=== PATIENT | female | born 2000 | race Hispanic/Latino ===

== ENCOUNTER 2021-11-10 12:09 | Emergency (ER) | payer OTHER, SELFPAY ==
--- NOTE | ~2021-11-10 | XR_ITS ---
EXAMINATION: XR abdomen/kub 1V DATE: 11/10/2021 14:27 INDICATION: 2 days of constipation TECHNIQUE: A supine view of the abdomen was obtained. COMPARISON: None. FINDINGS: Moderate amount of stool in the transverse colon. Small amount of gas with minimal if any stool ident ified in the remainder of the colon. No dilated gas-filled loops of bowel to suggest obstruction. Mil d lumbar levocurvature. IMPRESSION: 1. Normal bowel gas pattern with moderate amount of stool at the transverse colon. Reviewed, dictated and finalized at location B. DIAL TEACHER IMPRESSION: 1. Normal bowel gas pattern with moderate amount of stool at the transverse col on.
[2021-11-10 12:21] VITALS: BP 109/70; PULSE 97; RESP 16; TEMP 37.6; O2SAT 99
--- NOTE | 2021-11-10 14:07 | ED.GENADULT ---
HPI - General Adult General Chief complaint: Abdominal Pain Stated complaint: ABD PAIN Time Seen by Provider: 11/10/21 14:07 Source: patient, RN notes reviewed and old records reviewed Mode of arrival: ambulatory Limitations: no limitations History of Present Illness HPI narrative: 20-year-old female who presents to [facility] with complaints of abdominal pain at the navel region radiating upward to the sternum. Patient has had constipation with small stool this morning which was very hard. Patient reports that she took laxative yesterday. Patient states that her appetite is decreased and her pain seems worse with eating.Patient denies any acute nausea or vomiting. MD complaint: andominal pain and constipation Related Data Allergies Allergy/AdvReac Type Severity Reaction Status Date / Time No Known Allergies Allergy Unverified 07/24/19 09:16 Review of Systems Review of Systems: CONSTITUTIONAL: Denies fever, chills, or sweats. EYES: Denies visual changes, redness, or discharge. ENT: Denies rhinorrhea, congestion, sore throat, or otalgia. CARDIOVASCULAR: Denies chest pain, palpitations, or edema. RESPIRATORY: Denies cough or dyspnea. GASTROINTESTINAL: positive for abdominal pain from naval region to her chest with no nausea, vomiting, or diarrhea, has had constipation GENITOURINARY: Denies dysuria or hematuria. SKIN: Denies rash or itching. MUSCULOSKELETAL: Denies back pain, joint pain, or myalgia. NEUROLOGIC: Denies headache, numbness, or weakness. PSYCHIATRIC: Denies anxiety or depression. All systems reviewed & are unremarkable except as noted in HPI and below PMFSH Past Medical History Medical History (Updated 11/12/21 @ 00:10 by Milly Santana NP) Ear infection Enteritis was hospitalized 2019 with this diagnosis Social History Social History (Updated 11/12/21 @ 00:11 by Milly Santana NP) Smoking status: Never smoker Alcohol intake: unknown Substance use: never Living arrangements: with family Gender identity (if verbalized by the patient): Female Comments At time of signature, agree with nursing past medical, surgical, social and family history. There is no relevant family history pertinent to the presenting complaint Exam Narrative: GENERAL: Well-appearing, well-nourished, and in no acute distress. HEAD: Normocephalic, atraumatic. EYES: PERRLA and EOMI. ENT: Nares clear, no rhinorrhea or epistaxis. Mucous membranes moist.TM's normal with good light reflex, throat pink with no exudates or lesions, no tonsil abnormality NECK: Supple.no lymphadenopathy CHEST: Clear to auscultation. No respiratory distress. HEART: Regular rate and rhythm. No murmur heard. Normal peripheral pulses. ABDOMEN: Soft, tender upper epigastric area on palpation with abdomen nondistended, normal active bowel sounds.reported constipation, No McBurney point tenderness. EXTREMITIES: Normal range of motion. No edema. SKIN: Warm, dry, no rash. NEURO: No focal deficits. Alert and oriented x3. Course Course Level of Care: Express Care Visit Vital Signs Vital signs: Vital Signs Temperature 37.6 C 11/10/21 12:21 Pulse Rate 97 11/10/21 12:21 Respiratory Rate 16 11/10/21 12:21 Blood Pressure 109/70 11/10/21 12:21 Pulse Oximetry 99 11/10/21 12:21 Temperature 37.6 C 11/10/21 12:21 Pulse Rate 97 11/10/21 12:21 Respiratory Rate 16 11/10/21 12:21 Blood Pressure 109/70 11/10/21 12:21 Pulse Oximetry 99 11/10/21 12:21 Medical Decision Making Differential Diagnosis Differential Diagnosis: abdominal pain,constipation, gastritis, enteritis. Medical Records Medical records reviewed: Yes I reviewed the external patient's medical records. Vital Signs Vital Signs: Vital Signs Temperature 37.6 C 11/10/21 12:21 Pulse Rate 97 11/10/21 12:21 Respiratory Rate 16 11/10/21 12:21 Blood Pressure 109/70 11/10/21 12:21 Pulse Oximetry 99 11/10/21 12:21 Temperature 37.6 C 11/10
== END 2021-11-10 15:01 | disposition home or self-care (01) ==
PROVIDERS: Emergency Provider Registered Nurse
DX: R10.13 Epigastric pain (principal); K59.00 Constipation, unspecified
CPT/HCPCS: 74018; 99213; G0463

== ENCOUNTER 2022-01-30 17:10 | Emergency (ER) | payer OTHER, SELFPAY ==
--- NOTE | ~2022-01-30 | CT_ITS ---
EXAMINATION: CT abdomen pelvis w con DATE: 01/30/2022 20:13 INDICATION: Right lower quadrant abdominal pain and tenderness today TECHNIQUE: Computed tomography (CT) of the abdomen and pelvis was performed with 100 CC Omnipaque 350 intravenous contrast. Automated exposure control and iterative reconstruction technique were employe d. Exam dose: 252.00 mGy-cm total exam DLP. COMPARISON: 11/10/2019 KUB 07/24/2019 CT abdomen pelvis FINDINGS: The lung bases are clear. Normal heart size. No pericardial or pleural effusion. The liver, gallbladder, bile ducts, spleen, pancreas and pancreatic duct appear normal. Normal morphology of the adrenal glands. No renal mass lesion or urinary tract calculus or hydroureteronephrosis. The uterus, adnexal areas and urinary bladder are unremarkable. Normal caliber of the abdominal aorta. No intraperitoneal or retroperitoneal or pelvic mass lesion or adenopathy or ascites. Normal appendix. No bowel obstruction or intraperitoneal free air. Included skeletal structures are unremarkable. IMPRESSION: Normal appendix Reviewed, dictated and finalized at Location A. Reviewed, dictated and finalized at location A. IMPRESSION: Normal appendix
[2022-01-30 17:35] VITALS: BP 124/73; PULSE 111; RESP 14; TEMP 36.9; O2SAT 100
[2022-01-30 18:39] LABS: Basophils Absolute Auto 0.1 K/mm3 (0.0-0.1); Basophils Percent Auto 0.5 % (0.2-1.2); Eosinophils Absolute Auto 0.1 K/mm3 (0-0.3); Hematocrit 43.1 % (37.0-47.0); Immature Granulocyte Absolute 0.04 K/mm3 (0.00-0.031); Immature Granulocyte Percent A 0.4 % (0-0.5); Lymphocytes Absolute Auto 2.43 K/mm3 (0.9-3.2); Lymphocytes Percent Auto 25.8 % (18.3-44.2); Mean Corpuscular HGB Conc 32.5 g/dl (32-36); Mean Corpuscular Hemoglobin 30.3 pg (26-34); Mean Corpuscular Volume 93.3 fl (80-100); Mean Platelet Volume 9.7 fl (7.4-10.4); Monocytes Absolute Auto 0.9 K/mm3 (0.1-0.6); Monocytes Percent Auto 9.8 % (2.6-8.5); Neutrophils Absolute Auto 5.9 K/mm3 (1.3-6.7); Neutrophils Percent Auto 62.5 % (45.5-73.1); Platelet Count Result 300 k/mm3 (150-375); Red Blood Count 4.62 M/mm3 (4.2-5.4); Red Cell Distribution Width 12.4 % (11.5-14.5); White Blood Count 9.4 K/mm3 (4.5-10.0)
[2022-01-30 18:56] LABS: Alanine Aminotransferase 43 U/L (4-35); Albumin Level 4.6 g/dL (3.5-5.1); Alkaline Phosphatase 70 U/L (38-126); Anion Gap 8 mmol/L (8-16); Aspartate Amino Transferase 44 U/L (14-36); Bilirubin,Total 0.2 mg/dL (0.2-1.3); Blood Urea Nitrogen 9 mg/dL (7-17); Calcium 9.1 mg/dL (8.4-10.2); Carbon Dioxide 23 mmol/L (22-30); Chloride 105 mmol/L (98-107); Estimated Glomerular Filt Rate > 60; Glucose 109 mg/dL (65-110); Lipase 67 U/L (23-300); Potassium 3.9 mmol/L (3.4-5.0); Sodium 136 mmol/L (137-145)
[2022-01-30 19:25] LABS: Add Urine Microscopic? YES; Appearance Urine Cloudy (Clear); Bacteria Urine Trace /hpf; Bilirubin Urine Negative (Negative); Blood Urine Negative (Negative); Color Urine Yellow (Yellow); Glucose Urine UA Negative (Negative); Ketones Urine Negative (Negative); Leukocyte Esterase Ur Negative LEU/UL (Negative); Mucus Urine Rare /lpf; Nitrate Urine Negative (Negative); Protein Urine Negative (Negative); Specific Grav Ur 1.025 (1.001-1.035); Squamous Epithelial Cell Urine Moderate /hpf (Few); Urobilinogen Urine Negative mg/dL (<2.0)
--- NOTE | 2022-01-30 19:29 | ED.ABDPAIN ---
HPI - Abdominal Pain General Chief Complaint: Abdominal Pain Stated Complaint: abd pain Time Seen by Provider: 01/30/22 19:28 Source: patient Mode of arrival: ambulatory Limitations: no limitations History of Present Illness HPI narrative: Patient is a 21-year-old female complaining of right lower quadrant pain, sharp, 5 out of 10, nonradiating started today. Patient denies any nausea, vomiting, diarrhea, urinary symptoms, fever or chills. Patient denies any vaginal bleeding or discharge. Last menstrual period January 16. Related Data Home Medications Medication Instructions Recorded Confirmed No Home Medications 01/30/22 01/30/22 Allergies Allergy/AdvReac Type Severity Reaction Status Date / Time No Known Allergies Allergy Unverified 07/24/19 09:16 Review of Systems Review of Systems: All systems reviewed & are unremarkable except as noted in HPI and below Constitutional: Constitutional: Denies body ache(s), Denies chills, Denies excessive sweating, Denies fatigue, Denies fever(s), Denies headache(s), Denies lethargy, Denies malaise, Denies weakness and Denies weight loss Eyes: Eyes: Denies blurry vision, Denies change in vision and Denies loss of vision ENT: Denies dizziness, Denies ear discharge, Denies headache(s), Denies lip swelling, Denies epistaxis, Denies nasal congestion, Denies neck pain, Denies throat swelling and Denies tongue swelling Cardiovascular: Cardiovascular: Denies chest pain, Denies chest pain at rest, Denies chest pain with activity, Denies diaphoresis, Denies rapid heart rate, Denies edema, Denies irregular heart rhythm, Denies lightheadedness, Denies palpitations, Denies dyspnea and Denies dyspnea on exertion Respiratory: Respiratory: Denies chest congestion, Denies cough, Denies hemoptysis, Denies dyspnea and Denies dyspnea on exertion Gastrointestinal: Gastrointestinal: Denies melena, Denies hematochezia, Denies diarrhea, Denies nausea, Denies vomiting and Denies hematemesis Musculoskeletal: Musculoskeletal: Denies abnormal gait, Denies deformity, Denies joint swelling, Denies limited range of motion, Denies neck pain and Denies numbness Neurologic: Denies Abnormal speech present, Denies abnormal gait, Denies confusion, Denies dizziness, Denies headache(s), Denies focal weakness, Denies loss of vision, Denies numbness, Denies Other visual disturbances, Denies Sensory deficit (Neuro) and Denies weakness Psychiatric: Psychiatric: Denies confusion, Denies depression, Denies auditory hallucinations, Denies homicidal ideation and Denies suicidal ideation Endocrine: Endocrine: Denies cold intolerance, Denies excessive sweating, Denies fatigue, Denies heat intolerance and Denies palpitations Hematologic/Lymphatic: Hematologic/Lymphatic: Denies easy bleeding and Denies easy bruising Allergic/Immunologic: Allergic/Immunologic: Denies lip swelling, Denies throat swelling and Denies tongue swelling PMFSH Past Medical History Medical History Ear infection Enteritis was hospitalized 2019 with this diagnosis Social History Social History Smoking status: Never smoker Alcohol intake: unknown Substance use: never Gender identity (if verbalized by the patient): Female Exam Const: General: cooperative, healthy appearing, comfortable, no acute distress, well developed, alert and awake; No confusion Orientation/consciousness: oriented to person, oriented to place, oriented to time, patient oriented x3 and No confusion Limitations: no limitations HENMT: Head: normal to inspection, normocephalic and atraumatic Ears: hearing grossly normal bilaterally, TM normal on the right and TM normal on the left General nose exam: Normal external nose present, Normal nares present and No nasal discharge present Face and sinus: normal facial exam Mouth: Yes Normal oral and palatal mucosa present,
[2022-01-30] MEDS: SODIUM CHLORIDE 0.9% IV 1,000 ML 999 ML IV CONT (19:43)
[2022-01-30 21:30] VITALS: BP 104/69; PULSE 90; RESP 16; O2SAT 100
== END 2022-01-30 21:30 | disposition home or self-care (01) ==
PROVIDERS: Emergency Provider Emergency Medicine
DX: R10.31 Right lower quadrant pain (principal)
CPT/HCPCS: 36415; 74177; 80053; 81001; 81025; 83690; 85025; 96360; 99284; J7030; Q9967

== ENCOUNTER 2023-03-16 09:14 | Outpatient (CLI) | payer OTHER, SELFPAY ==
--- NOTE | ~2023-03-16 | US_ITS ---
Limited Abdominal Sonogram: Real-time sonographic imaging of the right upper quadrant was performed. Clinical History: Abnormal liver enzymes Findings: The liver appears normal with no evidence of mass lesion or bile duct dilatation. Main por naina vein demonstrates normal direction of flow. The gallbladder is well distended, and appears normal with no evidence of gallstone or wall thickening. The common bile duct measures 3 mm. The visualize d pancreas, aorta, and IVC are unremarkable. Right kidney measures 9 cm in length, without evidence f or hydronephrosis. Impression: No significant abnormality seen. Reviewed, dictated and finalized at location . Impression: No significant abnormality seen.
== END 2023-03-16 09:15 ==
PROVIDERS: PCP Nurse Practitioner Family; Visit Provider Nurse Practitioner Family
DX: K90.49 Malabsorption due to intolerance, not elsewhere classified (principal); R74.01 Elevation of levels of liver transaminase levels
CPT/HCPCS: 76705

== ENCOUNTER 2023-04-11 03:11 | Emergency (ER) | payer OTHER, SELFPAY ==
[2023-04-11 03:14] VITALS: BP 127/83; PULSE 91; RESP 18; TEMP 36.5; O2SAT 100
[2023-04-11 03:25] VITALS: BP 118/80; PULSE 86; RESP 14; TEMP 36.9; O2SAT 99
--- NOTE | 2023-04-11 03:53 | ED.GENADULT ---
HPI - General Adult General Chief complaint: Ear Stated complaint: right side earache History of Present Illness HPI narrative: this is a 22-year-old female presenting with chief complaint of right ear pain. Started about 6 hours ago. It was preceded by a sore throat and a cough. Patient denies fever chills nausea vomiting or diarrhea. She has no hearing loss. No dizziness or vertigo. She states this feels like when she had acute otitis media as a child. Related Data Home Medications Medication Instructions Recorded Confirmed norelgestromin 150 mcg-e.estradiol 1 patch transdermal WEEKLY 03/07/23 03/07/23 35 mcg/24 hr weekly transderm patch (Xulane) Allergies Allergy/AdvReac Type Severity Reaction Status Date / Time No Known Allergies Allergy Verified 04/11/23 03:24 [facility] Past Medical History Medical History Ear infection Enteritis was hospitalized 2019 with this diagnosis Family History Family History Mother Diabetes mellitus Father Diabetes mellitus Liver cancer Social History Social History Smoking status: Never smoker Alcohol intake: unknown Substance use: never Living arrangements: with family Gender identity (if verbalized by the patient): Female Exam Narrative: APPEARANCE: No apparent distress. Head: tympanic membrane on the right side is erythematous and bulging. Patient has erythematous /Edematous tonsils worse on left than the right. EYES: EOMI, NOSE: Atraumatic NECK: Trachea midline RESPIRATORY: No increased rate of breathing Clear to auscultation CARDIOVASCULAR: RRR, ABDOMINAL: Non-distended MUSCULOSKELETAl: No obvious deformities NEURO: Alert. Moving 4/4 extremities SKIN:: Warm, dry. Normal color PSYCHIATRIC: Normal affect Course Vital Signs Vital signs: Vital Signs Temperature 97.7 F 04/11/23 03:14 Pulse Rate 91 04/11/23 03:14 Respiratory Rate 18 04/11/23 03:14 Blood Pressure 127/83 04/11/23 03:14 Pulse Oximetry 100 04/11/23 03:14 Oxygen Delivery Room Air 04/11/23 03:14 Temperature 98.5 F 04/11/23 03:25 Pulse Rate 86 04/11/23 03:25 Respiratory Rate 14 04/11/23 03:25 Blood Pressure 118/80 04/11/23 03:25 Pulse Oximetry 99 04/11/23 03:25 Oxygen Delivery Room Air 04/11/23 03:14 Medical Decision Making MDM Narrative Medical decision making narrative: -Presentation: 22-year-old female presenting with ear pain sore throat cough. 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 Additionally she has erythematous throat. Dx tests considered but not ordered: -Procedures: -Interventions: Motrin, Tylenol, dexamethasone, Augmentin -Shared decision making / Disposition: patient has acute otitis media on the right as well as a erythematous posterior oropharynx. Ten day course of Augmentin will cover both otitis media as well as strep throat. Patient will be discharged. -RX Augmentin 875 mg b.i.d. times 10 days Vital Signs Vital Signs: Vital Signs Temperature 97.7 F 04/11/23 03:14 Pulse Rate 91 04/11/23 03:14 Respiratory Rate 18 04/11/23 03:14 Blood Pressure 127/83 04/11/23 03:14 Pulse Oximetry 100 04/11/23 03:14 Oxygen Delivery Room Air 04/11/23 03:14 Temperature 98.5 F 04/11/23 03:25 Pulse Rate 86 04/11/23 03:25 Respiratory Rate 14 04/11/23 03:25 Bl
[2023-04-11] MEDS: ACETAMINOPHEN 500 MG TABLET 1000 MG PO (04:16)
[2023-04-11] MEDS: AMOXICILLIN/CLAVULANATE K 875-125 MG TAB 1 TABLET PO (04:17)
[2023-04-11] MEDS: IBUPROFEN 400 MG TABLET 800 MG PO (04:17)
== END 2023-04-11 04:30 | disposition home or self-care (01) ==
PROVIDERS: Emergency Provider Emergency Medicine; PCP Nurse Practitioner Family
DX: J06.9 Acute upper respiratory infection, unspecified (principal); H66.91 Otitis media, unspecified, right ear
CPT/HCPCS: 96372; 99283; A9270; J1100

== ENCOUNTER 2023-06-11 21:33 | Emergency (ER) | payer OTHER, SELFPAY ==
--- NOTE | ~2023-06-11 | CT_ITS ---
CT scan of the right femur CLINICAL HISTORY: Right groin swelling TECHNIQUE: Following intravenous administration of 100 cc of Omnipaque 350 contrast 0, axial imaging of the right femur was performed. Sagittal and coronal reformatted images were constructed. Dose redu ction technique was used on this scan by utilizing automated exposure control and iterative reconstru ction technique. The dose-length product (DLP) was 478.82 mGy-cm. Findings: No fracture or dislocation seen. No periosteal reaction seen. Joint spaces at the hip and k nee are intact. Visualized musculature unremarkable. Subcutaneous soft tissues are unremarkable. No mass lesion or fl uid collection seen. IMPRESSION: No significant abnormality seen. Reviewed, dictated and finalized at location M.
[2023-06-11 21:38] VITALS: BP 134/80; PULSE 109; RESP 18; TEMP 36.8; O2SAT 100
[2023-06-11 22:55] LABS: Basophils Absolute Auto 0.1 K/mm3 (0.0-0.1); Basophils Percent Auto 0.4 % (0.2-1.2); Eosinophils Absolute Auto 0.2 K/mm3 (0-0.3); Eosinophils Percent Auto 1.5 % (0-4.4); Hematocrit 40.9 % (37.0-47.0); Hemoglobin 13.4 g/dL (12.0-15.0); Immature Granulocyte Absolute 0.04 K/mm3 (0.00-0.031); Immature Granulocyte Percent A 0.3 % (0-0.5); Lymphocytes Absolute Auto 3.73 K/mm3 (0.9-3.2); Lymphocytes Percent Auto 30.3 % (18.3-44.2); Mean Corpuscular HGB Conc 32.8 g/dl (32-36); Mean Corpuscular Hemoglobin 29.9 pg (26-34); Mean Corpuscular Volume 91.3 fl (80-100); Mean Platelet Volume 9.6 fl (7.4-10.4); Monocytes Absolute Auto 0.9 K/mm3 (0.1-0.6); Monocytes Percent Auto 6.9 % (2.6-8.5); Neutrophils Absolute Auto 7.5 K/mm3 (1.3-6.7); Neutrophils Percent Auto 60.6 % (45.5-73.1); Platelet Count Result 347 k/mm3 (150-375); Red Blood Count 4.48 M/mm3 (4.2-5.4); White Blood Count 12.3 K/mm3 (4.5-10.0)
[2023-06-11 23:06] LABS: Alanine Aminotransferase 44 U/L (6-35); Albumin Level 4.2 g/dL (3.5-5.1); Alkaline Phosphatase 53 U/L (38-126); Anion Gap 7 mmol/L (8-16); Aspartate Amino Transferase 40 U/L (14-36); Bilirubin,Total 0.2 mg/dL (0.2-1.3); Blood Urea Nitrogen 8 mg/dL (7-17); Calcium 9.1 mg/dL (8.4-10.2); Carbon Dioxide 24 mmol/L (22-30); Chloride 105 mmol/L (98-107); Estimated CRCL calculation 109 ml/min; Estimated Glomerular Filt Rate > 60; Glucose 105 mg/dL (65-110); Potassium 3.4 mmol/L (3.4-5.0); Sodium 136 mmol/L (137-145)
[2023-06-11 23:14] LABS: Appearance Urine Clear (Clear); Bacteria Urine None Seen /hpf; Bilirubin Urine Negative (Negative); Blood Urine Trace (Negative); Color Urine Yellow (Yellow); Glucose Urine UA Negative (Negative); Ketones Urine Negative (Negative); Leukocyte Esterase Ur Trace LEU/UL (Negative); Nitrate Urine Negative (Negative); Non Pathogenic Casts 0-2; Protein Urine Negative (Negative); RBC Urine 0-2 /hpf (0-2); Specific Grav Ur 1.015 (1.001-1.035); Squamous Epithelial Cell Urine Occasional /hpf (Few); Urobilinogen Urine 0.2 mg/dL (<2.0); WBC Urine 0-5 /hpf; pH Urine 5.5 (5.0-9.0)
[2023-06-11 23:18] LABS: Add Urine Microscopic? YES
[2023-06-12] MEDS: SODIUM CHLORIDE 0.9% IV 1,000 ML 999 ML IV CONT (00:46)
[2023-06-12] MEDS: KETOROLAC 30 MG/ML VIAL (*BKC) IV PUSH (00:46)
--- NOTE | 2023-06-12 02:17 | ED.GENADULT ---
HPI - General Adult General Chief complaint: Unspecified Stated complaint: groin pain Time Seen by Provider: 06/11/23 22:55 Source: patient and RN notes reviewed Mode of arrival: ambulatory Limitations: no limitations History of Present Illness HPI narrative: This is a 22 year old female who presents for evaluation of right medial thigh pain. She reports this pain started 3 days ago while she was sleeping. Her pain has been constant . She has associated tenderness and pain with movement. She denies any injury, nausea, vomiting or fever. Her pain is nonradiating. She took ibuprofen 200 mg yesterday without any relief. She denies abdominal pain or pelvic pain. She is currently on her menstrual cycle right now. Related Data Home Medications Medication Instructions Recorded Confirmed norelgestromin 150 mcg-e.estradiol 1 patch transdermal WEEKLY 03/07/23 03/07/23 35 mcg/24 hr weekly transderm patch (Xulane) Allergies Allergy/AdvReac Type Severity Reaction Status Date / Time No Known Allergies Allergy Verified 06/11/23 21:39 Review of Systems Constitutional: Constitutional: Denies weakness Cardiovascular: Cardiovascular: Denies syncope, Denies rapid heart rate, Denies irregular heart rhythm, Denies leg edema and Denies dyspnea Respiratory: Respiratory: Denies chest congestion, Denies hemoptysis, Denies excessive phlegm production and Denies dyspnea Gastrointestinal: Gastrointestinal: Denies abdominal pain, Denies hematochezia, Denies diarrhea and Denies vomiting Genitourinary: Genitourinary: Denies hematuria and Denies dysuria Musculoskeletal: Musculoskeletal: Denies joint swelling, Denies loss of height, Denies muscle weakness and Reports other (right groin pain) Neurologic: Denies syncope, Denies focal weakness and Denies weakness PMFSH Past Medical History Medical History Ear infection Enteritis was hospitalized 2019 with this diagnosis Family History Family History Mother Diabetes mellitus Father Diabetes mellitus Liver cancer Social History Social History Smoking status: Never smoker Alcohol intake: unknown Substance use: never Living arrangements: with family Gender identity (if verbalized by the patient): Female Exam Narrative: GENERAL:well-nourished, and in mild HEAD: Normocephalic, atraumatic EYES: EOMI, conjunctiva clear without discharge THROAT:Mucous membranes moist, Oropharynx normal without erythema, exudate, peritonsillar swelling or fluctuance NECK: Supple, without lymphadenopathy or mass RESPIRATORY: No respiratory distress, Airway patent, Respirations non-labored, Clear to auscultation without rales, rhonchi or wheeze HEART: Regular rate and rhythm. No murmur heard. Normal peripheral pulses. ABDOMEN: Soft, nontender, nondistended, normal active bowel sounds. No masses. No rebound or guarding, No organomegaly. EXTREMITIES: No edema, normal strength with full range of motion. TTP right medial thigh, no erythema, no fluctuance; strong bilateral pedal pulses, right femoral pulse present SKIN: Warm, dry, normal color without rash NEURO: Alert and oriented x3. CN 2-12 grossly intact. No focal deficits. PSYCH: Normal mood and affect. Course Reevaluation(s) Reevaluation #1: PAtient reports her pain has improved. I discussed CT did not show any acute findings. I Discussed plan to discharge home with antiinflammatories. Patient may have lymph node that is inflammed so will give keflex as welling Date: 06/12/23 Time: 04:34 Vital Signs Vital signs: Vital Signs Temperature 98.3 F 06/11/23 21:38 Pulse Rate 109 H 06/11/23 21:38 Respiratory Rate 18 06/11/23 21:38 Blood Pressure 134/80 06/11/23 21:38 Pulse Oximetry 100 06/11/23 21:38 Oxygen Delivery Room Air 06/11/23 21:38
[2023-06-12 04:38] VITALS: BP 112/80; PULSE 94; RESP 16; O2SAT 97
== END 2023-06-12 04:59 | disposition home or self-care (01) ==
PROVIDERS: Emergency Provider General Practice; PCP Nurse Practitioner Family
DX: R10.30 Lower abdominal pain, unspecified (principal)
CPT/HCPCS: 36415; 73701; 80053; 81001; 81025; 85025; 96361; 96374; 99284; J1885; J7030

== ENCOUNTER 2024-05-17 22:02 | Emergency (ER) | payer OTHER, SELFPAY ==
--- NOTE | ~2024-05-17 | XR_ITS ---
EXAMINATION: XR chest 1V portable DATE: 05/18/2024 00:13 INDICATION: Chest pain TECHNIQUE: frontal view of the chest was obtained. COMPARISON: Chest radiograph dated 07/25/2019 FINDINGS: The lungs remain clear with no focal airspace opacities, pulmonary edema, pleural effusion or pneumot horax. The cardiomediastinal silhouette is normal. Mild thoracic dextrocurvature. IMPRESSION: 1. No acute cardiopulmonary disease. Reviewed, dictated and finalized at location A.
[2024-05-17 22:04] VITALS: BP 139/92; PULSE 131; RESP 18; TEMP 36.7; O2SAT 100
--- NOTE | 2024-05-17 22:08 | ECG_ITS ---
Test Date: 2024-05-17 22:14:01 Measurements Intervals [place] Rate: 110 P: 50 MT: 129 QRS: 70 QRSD: 81 T: -13 QT: 331 QTc: 448 Interpretive Statements SINUS TACHYCARDIA NONSPECIFIC ST & T-WAVE ABNORMALITY- INF/LAT LEADS BASELINE WANDER- V4 ABNORMAL ECG No previous ECG available for comparison Electronically Signed On 05-18-2024 07:27:20 CDT by Eusebio Stone D.O.
--- NOTE | 2024-05-17 23:47 | ED.CHESTPAIN ---
HPI - Chest Pain General Chief Complaint: Chest Pain Stated Complaint: chest pain Time Seen by Provider: 05/17/24 23:28 History of Present Illness HPI narrative: 23-year-old female presents to the emergency department mother at bedside for chest pain for the past several days. Patient states the pain is in the center of her chest and occurs after eating. She describes the pain as a dull ache. She denies other aggravating or alleviating factors. Denies shortness of breath, lower extremity edema, biopsies, recent surgeries or hospitalizations, history of VTE. She is not on control. She denies cough or congestion, fever, abdominal pain, vomiting or diarrhea. She does endorse some nausea but is attributing this to her current menstrual cycle. Also notes that she has been feeling very anxious recently. She admits that she is currently anxious. Denies SI or HI. Related Data Home Medications Medication Instructions Recorded Confirmed norelgestromin 150 mcg-e.estradiol 1 patch transdermal WEEKLY 03/07/23 03/07/23 35 mcg/24 hr weekly transderm patch (Xulane) Allergies Allergy/AdvReac Type Severity Reaction Status Date / Time No Known Allergies Allergy Verified 05/17/24 22:07 Review of Systems Review of Systems: CONSTITUTIONAL: Denies fever, chills, or sweats. EYES: Denies visual changes, redness, or discharge. ENT: Denies rhinorrhea, congestion, sore throat, or otalgia. CARDIOVASCULAR: See HPI RESPIRATORY: Denies cough or dyspnea. GASTROINTESTINAL: Denies abdominal pain, nausea, vomiting, or diarrhea. GENITOURINARY: Denies dysuria or hematuria. SKIN: Denies rash or itching. MUSCULOSKELETAL: Denies back pain, joint pain, or myalgia. NEUROLOGIC: Denies headache, numbness, or weakness. PSYCHIATRIC: Denies anxiety or depression. ON LICENSE OF [facility] Past Medical History Medical History Ear infection Enteritis was hospitalized 2019 with this diagnosis Family History Family History Mother Diabetes mellitus Father Diabetes mellitus Liver cancer Social History Social History Smoking status: Never smoker Alcohol intake: unknown Substance use: never Living arrangements: with family Gender identity (if verbalized by the patient): Female Exam Narrative: GENERAL: Well-appearing, well-nourished, and in no acute distress. anxious appearing HEAD: Normocephalic, atraumatic. EYES: PERRLA and EOMI. ENT: Nares clear, no rhinorrhea or epistaxis. Mucous membranes moist. NECK: Supple. CHEST: Clear to auscultation. No respiratory distress. no tenderness to chest wall HEART: Regular rate and rhythm. No murmur heard. Normal peripheral pulses. ABDOMEN: Soft, nontender, nondistended, normal active bowel sounds. EXTREMITIES: Normal range of motion. No edema. negative Homans bilaterally SKIN: Warm, dry, no rash. NEURO: No focal deficits. Alert and oriented x3 Course Vital Signs Vital signs: Vital Signs Temperature 98.1 F 05/17/24 22:04 Pulse Rate 131 H 05/17/24 22:04 Respiratory Rate 18 05/17/24 22:04 Blood Pressure 139/92 H 05/17/24 22:04 Pulse Oximetry 100 05/17/24 22:04 Oxygen Delivery Room Air 05/17/24 22:04 Temperature 98.1 F 05/17/24 22:04 Pulse Rate 110 H 05/18/24 00:45 Respiratory Rate 15 05/18/24 00:45 Blood Pressure 109/94 H 05/18/24 00:21 Pulse Oximetry 100 05/18/24 00:21 Oxygen Delivery Room Air 05/18/24 00:08 MDM - Chest Pain MDM Narrative Medical decision making narrative: 23-year-old female presents to the emergency department for several days of midsternal chest pain that is worse after eating. Triage vital significant for blood pressure 139/92 in tachycardia 131. She does endorse feeling anxious and also appears to be anxious. She is otherwise well-appearing on
[2024-05-18 00:08] VITALS: PULSE 126; O2SAT 100
[2024-05-18 00:11] LABS: Basophils Percent Auto 0.3 % (0.2-1.2); Eosinophils Absolute Auto 0.1 K/mm3 (0-0.3); Eosinophils Percent Auto 0.5 % (0-4.4); Hematocrit 39.6 % (37.0-47.0); Hemoglobin 13.1 g/dL (12.0-15.0); Immature Granulocyte Absolute 0.03 K/mm3 (0.00-0.031); Immature Granulocyte Percent A 0.2 % (0-0.5); Lymphocytes Absolute Auto 3.31 K/mm3 (0.9-3.2); Lymphocytes Percent Auto 25.2 % (18.3-44.2); Mean Corpuscular HGB Conc 33.1 g/dl (32-36); Mean Corpuscular Hemoglobin 29.2 pg (26-34); Mean Corpuscular Volume 88.2 fl (80-100); Mean Platelet Volume 9.4 fl (7.4-10.4); Monocytes Absolute Auto 0.8 K/mm3 (0.1-0.6); Monocytes Percent Auto 5.9 % (2.6-8.5); Neutrophils Absolute Auto 8.9 K/mm3 (1.3-6.7); Neutrophils Percent Auto 67.9 % (45.5-73.1); Platelet Count Result 369 k/mm3 (150-375); Red Blood Count 4.49 M/mm3 (4.2-5.4); Red Cell Distribution Width 12.2 % (11.5-14.5); White Blood Count 13.2 K/mm3 (4.5-10.0)
[2024-05-18] MEDS: FAMOTIDINE 20 MG/2 ML VIAL IV PUSH (00:15)
[2024-05-18] MEDS: BELLADONNA ALK/PHENOB ELIX 10 ML, MAG HYDROX/ALUMINUM HYD/SIMETH 30 ML, LIDOCAINE HCL 2... PO (00:15)
[2024-05-18] MEDS: ONDANSETRON INJ 4 MG/2 ML VIAL IV PUSH (00:15)
[2024-05-18 00:21] VITALS: BP 109/94; PULSE 120; RESP 14; O2SAT 100
[2024-05-18 00:24] LABS: Alanine Aminotransferase 27 U/L (6-35); Albumin Level 4.8 g/dL (3.5-5.1); Alkaline Phosphatase 63 U/L (38-126); Anion Gap 15 mmol/L (4-12); Aspartate Amino Transferase 44 U/L (14-36); Bilirubin,Total 0.5 mg/dL (0.2-1.3); Blood Urea Nitrogen 8 mg/dL (7-17); Calcium 9.1 mg/dL (8.4-10.2); Carbon Dioxide 21 mmol/L (22-30); Chloride 105 mmol/L (98-107); Estimated CRCL calculation 109 ml/min; Estimated Glomerular Filt Rate > 60; Glucose 111 mg/dL (65-110); Lipase 66 U/L (23-300); Potassium 3.5 mmol/L (3.4-5.0); Sodium 141 mmol/L (137-145)
[2024-05-18 00:34] LABS: Troponin I < 0.012 ng/mL (0.000-0.034)
[2024-05-18 00:45] VITALS: PULSE 110; RESP 15
[2024-05-18] MEDS: SODIUM CHLORIDE 0.9% IV 1,000 ML 999 ML IV CONT ×2 (00:52→01:40)
[2024-05-18 01:16] LABS: D Dimer 0.42 ug/mL (<0.48)
[2024-05-18 01:24] LABS: Appearance Urine Clear (Clear); Bacteria Urine None Seen /hpf; Bilirubin Urine Negative (Negative); Blood Urine 2+ (Negative); Color Urine Yellow (Yellow); Glucose Urine UA Negative (Negative); Ketones Urine Negative (Negative); Leukocyte Esterase Ur Negative LEU/UL (Negative); Nitrate Urine Negative (Negative); Non Pathogenic Casts 0-2; Protein Urine Negative (Negative); Specific Grav Ur 1.007 (1.001-1.035); Squamous Epithelial Cell Urine None Seen /hpf (Few); Urobilinogen Urine 0.2 mg/dL (<2.0); WBC Urine 0-5 /hpf (0-3); pH Urine 6.5 (5.0-9.0)
[2024-05-18 01:29] LABS: Add Urine Microscopic? YES
[2024-05-18 02:27] VITALS: BP 127/84; PULSE 125; RESP 15; O2SAT 100
== END 2024-05-18 02:27 | disposition home or self-care (01) ==
PROVIDERS: Emergency Provider Physician Assistant
DX: R07.89 Other chest pain (principal)
CPT/HCPCS: 36415; 71045; 80053; 81001; 81025; 83690; 84484; 85025; 85380; 93005; 96361; 96374; 96375; 99284; A9270; J2405; J7030

== ENCOUNTER 2025-02-05 14:06 | Outpatient (CLI) | payer OTHER, SELFPAY ==
--- NOTE | ~2025-02-05 | CT_ITS ---
CLINICAL INDICATION: Right lower quadrant pain COMPARISON: 01/30/2022. TECHNIQUE: Multiple contiguous axial images of the abdomen and pelvis were performed without the admi nistration of intravenous contrast The dose-length product (DLP) was 482.06 mGy-cm. Automated exposure control and iterative reconstruction technique were employed. FINDINGS/OBSERVATIONS: Visualized lower thorax: The bilateral lung bases are clear. The heart is of normal size, without pericardial effusion. Small hiatal hernia is present. Liver: The liver demonstrates homogeneous attenuation and is not enlarged. Gallbladder and biliary system: The gallbladder is only minimally distended, and otherwise unremarkable. Pancreas: Limited evaluation of the pancreas secondary to the lack of intravenous contrast. Spleen: The spleen demonstrates homogeneous attenuation and is not enlarged. Kidneys: The bilateral kidneys are unremarkable, without hydronephrosis or renal calculi. Adrenal glands: Unremarkable. Gastrointestinal tract: Trace fecal stasis within the colon. Appendix: The air-filled appendix is of normal caliber (axial series, images 114 through 133). Vasculature: Unremarkable. Lymph nodes: Limited evaluation without intravenous contrast. Pelvic structures: The bladder is decompressed and otherwise unremarkable. The uterus is anteverted and anteflexed, and otherwise unremarkable. Body wall and musculoskeletal: Small fat-containing supraumbilical hernia. No significant degenerative disease within the lower thoracic or lumbosacral spine. IMPRESSION: No acute intra-abdominal pathology, as detailed above. Normal appendix. Reviewed, dictated and finalized at location A.
--- NOTE | ~2025-02-05 | US_ITS ---
EXAM: PELVIC ULTRASOUND HISTORY: COLICKY RLQ PAIN COMPARISON: None. Reference is also made to the CT examination of the abdomen and pelvis performed on the day same day approximately 30 minutes earlier. FINDINGS: UTERUS: 7 x 4.2 x 4 cm. The uterus is anteverted and anteflexed. The endometrial complex measures 6.3mm. RIGHT OVARY: Within the right ovary is a 10 x 12 mm dominant follicle, possibly the source of patient's right lowe r quadrant pain. The remainder of the right ovary is otherwise unremarkable in echogenicity. The right ovary measures 2.5 x 2.2 x 2.8 cm. Dopplerable flow is identified. LEFT OVARY: Despite prolonged interrogation, the left ovary was not visualized. No free fluid is identified within the pelvis. IMPRESSION: Dominant follicle within the right ovary, without additional abnormality identified Reviewed, dictated and finalized at location A. IMPRESSION: Dominant follicle within the right ovary, without additional abnormality identi fied
== END 2025-02-05 14:07 | disposition home or self-care (01) ==
PROVIDERS: PCP Nurse Practitioner Family; Visit Provider Nurse Practitioner Family
DX: R10.31 Right lower quadrant pain (principal)
CPT/HCPCS: 74176; 76856